=== PATIENT | male | born 1935 | race Caucasian/White ===

== ENCOUNTER 2017-08-20 08:32 | Outpatient (CLI) | payer MEDICARE ==
--- NOTE | 2017-08-20 09:54 | CT ---
CT CHEST WITH IV COTNRAST: HISTORY: Chronic aortic aneurysm without rupture. FINDINGS: Comparison is made with the exam of 12/16/16. The thoracic aorta is tortuous. Vascular calcifications are again seen. The ascending thoracic aort a is stable measuring 5.1 and the descending thoracic aorta is also stable measuring 3.3 cm. No pleu ral or pericardial effusions are identified. No interval flap is seen in the well-opacified thoracic aortic lumen, to suggest dissection. No pneumothorax, focal areas of consolidation, or lung masses are identified. A 4 mm peripheral nodule in the posterior aspect in the left upper lobe is stable. There are degener ative changes in the supine. Upper abdominal tomograms demonstrate cysts I the liver. IMPRESSION: Stable exam with 5.1 cm ascending thoracic aortic aneurysm. POS: SERA
[2017-08-20] MEDS ORDERED: Iopamidol 370 76% 100 ML VIAL ONE (12:40)
== END 2017-08-20 08:33 | disposition home or self-care (01) ==
LOC: CT 08:32
PROVIDERS: ATTEND Internal Medicine Cardiovascular Disease
DX: I71.2 Thoracic aortic aneurysm, without rupture (principal)
CPT/HCPCS: 71260

== ENCOUNTER 2018-08-05 09:44 | Outpatient (CLI) | payer MEDICARE ==
[2018-08-05] MEDS ORDERED: ISOVUE-370 76%-LOCM 1 ML ONE (11:35)
--- NOTE | 2018-08-05 11:40 | CT ---
CT ANGIO CHEST PERFORMED WITH AND WITHOUT INTRAVENOUS CONTRAST ENHANCEMENT WITH 3D RECONSTRUCTIONS: HISTORY: The patient has a history of thoracic aortic aneurysm. This is a followup to prior imaging. COMPARISON: 08/20/2017 FINDINGS: The lungs are clear of any infiltrative process. No pulmonary nodules are identified or signs of ple ural effusions. No significant mediastinal or hilar adenopathy. There are moderate coronary artery calcifications seen. The thoracic aorta is very tortuous. The ascending thoracic aorta is stable in size (a measurement o f 5 cm is obtained on today's study). The descending thoracic aorta measures approximately 3.3 cm, a lso stable. A moderate hiatal hernia is incidentally seen. IMPRESSION: 1. Stable ascending aortic aneurysm, measuring in the 5 cm range. The aorta is very tortuous. 2. Fairly extensive coronary artery calcifications. POS: SERA
== END 2018-08-05 09:45 | disposition home or self-care (01) ==
LOC: BICCT 09:44
PROVIDERS: ATTEND Internal Medicine Cardiovascular Disease
DX: I71.2 Thoracic aortic aneurysm, without rupture (principal); I77.1 Stricture of artery; I25.10 Atherosclerotic heart disease of native coronary artery without angina pectoris
CPT/HCPCS: 71275; 82565

== ENCOUNTER 2019-05-17 11:42 | Outpatient (CLI) | payer MEDICARE ==
[2019-05-17 12:44] LABS: #Eosinphils 0.1 thou/uL (0.0-0.7); #Lymphocytes 0.8 thou/uL (1.20-3.40); #Monocytes 0.4 thou/uL (0.11-0.59); %Basophils 0.1 % (0.0-1.0); %Eosinophils 1.5 % (0.0-10.0); %Lymphocytes 18.9 % (21.0-51.0); %Monocytes 8.5 % (0.0-10.0); Mean Corpuscular Hemoglobin 32.3 pg (27.0-31.0); Mean Corpuscular Volume 97.9 fL (78.0-98.0); Mean Platelet Volume 8.4 fL (7.4-10.4); Platelet Count 110 thou/uL (130-400); RBC Distribution Width 11.8 % (11.5-14.5); Red Blood Cell (RBC) Count 4.33 mill/uL (4.70-6.10); White Blood Cell (WBC) Count 4.2 thou/uL (4.8-10.8)
[2019-05-17 13:21] LABS: Chloride 107 mmol/L (98-107); Potassium 4.1 mmol/L (3.5-5.1); Sodium 140 mmol/L (136-145)
[2019-05-17 13:22] LABS: Calcium 8.7 mg/dL (7.8-10.44); Glucose 93 mg/dL (83-110)
[2019-05-17 13:24] LABS: Anion Gap 11 mmol/L (10-20); Carbon Dioxide 26 mmol/L (23-31)
[2019-05-17 13:26] LABS: Calc. Creatinine Clearance 0 mL/min (70-130); Estimated GFR-MDRD 62
[2019-05-17 13:27] LABS: BUN (Urea Nitrogen) 16 mg/dL (8.4-25.7)
== END 2019-05-17 11:43 | disposition home or self-care (01) ==
LOC: LABBT 11:42
PROVIDERS: ATTEND Specialist
DX: Z01.812 Encounter for preprocedural laboratory examination (principal); Z51.81 Encounter for therapeutic drug level monitoring; K43.9 Ventral hernia without obstruction or gangrene; Z79.01 Long term (current) use of anticoagulants
CPT/HCPCS: 80048; 85025; 85730

== ENCOUNTER 2019-05-19 05:37 | Day surgery (SDC) | payer MEDICARE ==
[2019-05-17 12:03] VITALS: BMI 32.7
[2019-05-19] MEDS ORDERED: Ketorolac Tromethamine 30 MG/ML VIAL ONE (06:34)
[2019-05-19] MEDS ORDERED: Levofloxacin 500 mg/D5W 100 ml Premix Bag ONE (06:34)
[2019-05-19] MEDS ORDERED: Fentanyl 100 MCG/2 ML VIAL ONE ×2 (06:36)
[2019-05-19 06:40] LABS: INR-International Normal Ratio 2.2; PTT 38.1 SEC (22.9-36.1); Prothrombin Time 24.6 SEC (12.0-14.7)
== END 2019-05-19 07:30 | disposition home or self-care (01) ==
LOC: SDC 05:37
PROVIDERS: ATTEND Specialist
DX: K43.9 Ventral hernia without obstruction or gangrene (principal); Z79.01 Long term (current) use of anticoagulants; Z79.899 Other long term (current) drug therapy; Z88.0 Allergy status to penicillin; Z53.8 Procedure and treatment not carried out for other reasons
CPT/HCPCS: 36415; 85610; 85730; 86850; 86900; 86901; J0131; J1885; J1956; J3010

== ENCOUNTER 2019-05-21 07:10 | Day surgery (SDC) | payer MEDICARE ==
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
[2019-05-21] MEDS ORDERED: Ketorolac Tromethamine 30 MG/ML VIAL ONE (07:53)
[2019-05-21] MEDS ORDERED: Levofloxacin 500 mg/D5W 100 ml Premix Bag ONE (07:53)
[2019-05-21 08:12] LABS: INR-International Normal Ratio 1.4; PTT 34.2 SEC (22.9-36.1); Prothrombin Time 17.4 SEC (12.0-14.7)
[2019-05-21] MEDS ORDERED: Bupivacaine HCl 0.5%/Epinephrine 1:200,000/PF 30 ml Vial ONE (09:35)
[2019-05-21] MEDS ORDERED: Fentanyl 100 MCG/2 ML VIAL ONE ×3 (09:48→12:52)
[2019-05-21] MEDS ORDERED: Rocuronium Bromide 10 MG/ML (10ML VIAL) ONE (11:07)
[2019-05-21] MEDS ORDERED: Lidocaine 1% PF 5 ML VIAL ONE (11:07)
[2019-05-21] MEDS ORDERED: PHENYLEPHRINE-NS 100 MCG/ML 10 ML SYRINGE ONE (11:07)
[2019-05-21] MEDS ORDERED: Ondansetron PF 4 MG/2 ML Vial ONE (11:07)
[2019-05-21] MEDS ORDERED: Dexamethasone 20 MG/5 ML VIAL ONE (11:07)
[2019-05-21] MEDS ORDERED: Glycopyrrolate 0.2 MG/ML 5 ML SYRINGE ONE (11:07)
[2019-05-21] MEDS ORDERED: PROPOFOL 200 MG/20 ML VIAL ONE (11:07)
--- NOTE | 2019-05-21 12:37 | OP ---
DATE OF PROCEDURE: 05/21/2019 PREOPERATIVE DIAGNOSIS: Incisional hernia, spigelian type hernia, left lower quadrant just below the anterior superior iliac spine on the left. POSTOPERATIVE DIAGNOSIS: Incisional hernia, spigelian type hernia, left lower quadrant just below the anterior superior iliac spine on the left. PROCEDURE PERFORMED: Robot laparoscopic mesh repair of incisional hernia, left lower abdomen. DESCRIPTION OF PROCEDURE: The patient was taken to the operating room where under general anesthesia, a Santoyo catheter placed at the beginning of the procedure and removed at the end. Abdomen was prepared with ChloraPrep and draped in routine fashion. I tried to identify the hernia defect, but had difficulty. I then referred to his CAT scan, identifying the defect just below the anterior superior iliac spine on the left. There was a questionable defect. Left subxiphoid incision made and 8 mm port placed and right mid periumbilical incision made and 11 mm port placed and the right lower quadrant incision made and an 8 mm port placed under laparoscopic visualization after establishing pneumoperitoneum to 15 mmHg with a Veress needle. I then inspected the area and there was an area just superior to the old left inguinal hernia mesh, which had been done open where there was a recess in the lateral abdomen, probably accounting for the radiological findings. The robot was docked and robot evaluation and repair undertaken. There were a paucity of adhesions here. A very few adhesions were taken down. The peritoneal defect closed with continuous suture of 2-0 Stratafix and then 8 cm diameter round Ventralight mesh secured after reducing pneumoperitoneum to 9 mmHg and secured to the peritoneum with continuous suture of 2-0 Stratafix. Once this was completed and needles removed, good hernia repair appreciated. No other defects noted in the abdominal wall. Pneumoperitoneum reduced. All instruments were removed and all skin incisions were approximated with interrupted subdermal 4-0 Monocryl and Finzel glue applied. Job ID: [id number]
[2019-05-21] MEDS ORDERED: HYDROcodone/Acetaminophen 5/325 mg Tablet ONE ×2 (13:52→16:10)
[2019-05-21] MEDS ORDERED: Ondansetron ODT 4 MG TAB ONE (14:36)
[2019-05-21] MEDS ORDERED: Promethazine HCl 25 MG/ML VIAL ONE (17:55)
== END 2019-05-21 19:40 | disposition home or self-care (01) ==
LOC: SDC 07:10
PROVIDERS: ATTEND Specialist
PROC: 0WUF4JZ Supplement Abdominal Wall with Synthetic Substitute, Percutaneous Endoscopic Approach (ICD-10-PCS; principal; 2019-05-21)
DX: K43.2 Incisional hernia without obstruction or gangrene (principal); N40.0 Benign prostatic hyperplasia without lower urinary tract symptoms; I48.91 Unspecified atrial fibrillation; M19.90 Unspecified osteoarthritis, unspecified site; Z86.73 Personal history of transient ischemic attack (TIA), and cerebral infarction without residual deficits; Z79.01 Long term (current) use of anticoagulants; Z79.899 Other long term (current) drug therapy; Z88.0 Allergy status to penicillin; Z98.890 Other specified postprocedural states
CPT/HCPCS: 49654; 85610; 85730; C1781; 36415; J0131; J0670; J1885; J1956; J2550; J3010; Q0162

== ENCOUNTER 2019-05-23 04:06 | Emergency (ER) | payer MEDICARE ==
[2019-05-23] MEDS ORDERED: Morphine 4 MG/ML VIAL ONE (04:35)
[2019-05-23] MEDS ORDERED: Ondansetron PF 4 MG/2 ML Vial ONE (04:36)
[2019-05-23 04:38] LABS: Bacteria/HPF None Seen HPF (None Seen); Bilirubin Negative (Negative); Blood, Urine Trace (Negative); Clarity Clear (Clear); Glucose, Urine (Dipstick) Normal (Negative); Leukocyte Negative Leu/uL (Negative); Nitrite Negative (Negative); Protein, Urine (Dipstick) Negative (Neg-Trace); RBC/HPF 0-3 HPF (0-3); Squamous Epithelial 0-3 HPF (0-3); Urobilinogen Normal mg/dL (Less than 2); WBC/HPF 0-3 HPF (0-3)
[2019-05-23 04:59] LABS: #Eosinphils 0.1 thou/uL (0.0-0.7); #Lymphocytes 0.4 thou/uL (1.20-3.40); #Monocytes 0.5 thou/uL (0.11-0.59); #Neutrophils 5.5 thou/uL (1.40-6.50); %Eosinophils 0.8 % (0.0-10.0); %Lymphocytes 6.9 % (21.0-51.0); %Monocytes 7.3 % (0.0-10.0); Hemoglobin 13.5 g/dL (14.0-18.0); Mean Corpuscular Hemoglobin 32.9 pg (27.0-31.0); Mean Corpuscular Volume 99.9 fL (78.0-98.0); Mean Platelet Volume 8.8 fL (7.4-10.4); Platelet Count 115 thou/uL (130-400); RBC Distribution Width 11.5 % (11.5-14.5); White Blood Cell (WBC) Count 6.5 thou/uL (4.8-10.8)
[2019-05-23 05:15] LABS: ALT (SGPT) 17 U/L (8-55); AST (SGOT) 24 U/L (5-34); Alkaline Phosphatase 68 U/L (40-110); Anion Gap 13 mmol/L (10-20); BUN (Urea Nitrogen) 18 mg/dL (8.4-25.7); Calc. Creatinine Clearance 0 mL/min (70-130); Calcium 8.8 mg/dL (7.8-10.44); Carbon Dioxide 26 mmol/L (23-31); Chloride 102 mmol/L (98-107); Estimated GFR-MDRD 53; Globulin 2.5 g/dL (2.4-3.5); Glucose 113 mg/dL (83-110); Lipase 7 U/L (8-78); Potassium 4.3 mmol/L (3.5-5.1); Protein, Total 6.5 g/dL (5.8-8.1); Sodium 137 mmol/L (136-145)
--- NOTE | 2019-05-23 07:59 | CT ---
PRELIMINARY REPORT/[facility]/EMERGENCY AFTER HOURS PROCEDURE: PROCEDURE INFORMATION: Exam: CT Head Without Contrast Exam date and time: 05/23/2019 4:40 AM Clinical history: 83 years old, male; Injury or trauma; Initial encounter; Abrasion; Forehead; Patien t HX: Fall; PT reports hernia repair on Friday. Had fall Friday at noon, now reports lower abd pain and new lump to left groin TECHNIQUE: Imaging protocol: Computed tomography of the head without contrast. COMPARISON: No relevant prior studies available. FINDINGS: Brain: There are scattered foci of hypoattenuation within the periventricular and subcortical white m atter compatible with mild chronic microvascular ischemic change. There is mild parenchymal volume loss. There is no evidence of intracranial hemorrhage. Ventricles: Normal. No ventriculomegaly. Bones/joints: Unremarkable. No acute fracture. Sinuses: Visualized sinuses are unremarkable. No fluid levels. Mastoid air cells: Visualized mastoid air cells are well aerated. Soft tissues: Mild forehead soft tissue swelling is noted. IMPRESSION: No acute intracranial hemorrhage. Thank you for allowing us to participate in the care of your patient. Dictated and Authenticated by: Navin Cruz MD 05/23/2019 5:11 AM Central Time ([place] & [place]) FINAL REPORT CT BRAIN WITHOUT CONTRAST: HISTORY: Fall. COMPARISON: None. FINDINGS: Findings and impression are concordant with the preliminary report. IMPRESSION: No acute posttraumatic intracranial sequelae. Transcribed Date/Time: 05/23/2019 8:04 AM
--- NOTE | 2019-05-23 08:09 | CT ---
PRELIMINARY REPORT/[facility]/EMERGENCY AFTER HOURS PROCEDURE: PROCEDURE INFORMATION: Exam: CT Abdomen And Pelvis With Contrast Exam date and time: 05/23/2019 4:45 AM Clinical history: 83 years old, male; Injury or trauma; Initial encounter; Abrasion; Prior surgery; P atient HX: PT reports hernia repair on Friday. Had fall Friday at noon, now reports lower abd pain and new lump to left groin TECHNIQUE: Imaging protocol: Computed tomography of the abdomen and pelvis with intravenous contrast. COMPARISON: No relevant prior studies available. FINDINGS: Lungs: There is subpleural atelectasis of the dependent portions of the lungs. Mediastinum: A small hiatal hernia is present. Liver: There are multiple liver hypodensities that cannot be further characterized on the current examination. Gallbladder and bile ducts: The gallbladder is normal. There is no evidence of biliary ductal dilatio n. Pancreas: Normal. No ductal dilation. Spleen: The spleen is normal. Adrenals: The adrenal glands are normal. Kidneys and ureters: The kidneys appear normal. No hydronephrosis. Stomach and bowel: There is a small benign duodenal diverticulum. There are collapsed loops of bowel within the left lower quadrant with surrounding inflammation possibly sequela from recent surgery. Appendix: No evidence of appendicitis. Intraperitoneal space: No peritoneal hematoma is demonstrated. Vasculature: The vasculature demonstrates diffuse mild atherosclerotic calcification. Lymph nodes: Unremarkable. No enlarged lymph nodes. Bladder: Unremarkable as visualized. Reproductive: There is scrotal edema/moderate scrotal hydroceles. Bones/joints: There are chronic appearing compression fractures at L1 and L4 and/or Schmorl's node infiltration. Soft tissues: There is moderate amount of subcutaneous emphysema within the left abdominal subcutaneo us tissues. Foci of air are noted within the left inguinal region and along the left inguinal chain possibly residual from recent surgery. IMPRESSION: 1. Foci of air are noted within the left inguinal region and along the left inguinal chain and left a bdominal subcutaneous tissues likely residual from recent surgery. Clinical correlation advised. 2. No peritoneal hematoma is demonstrated. 3. Collapsed loops of bowel within the left lower quadrant possibly sequela from prior surgery. No de finite signs of bowel obstruction at this time. Thank you for allowing us to participate in the care of your patient. Dictated and Authenticated by: Navin Cruz MD 05/23/2019 5:20 AM Central Time ([place] & [place]) FINAL REPORT CT ABDOMEN AND PELVIS WITH CONTRAST: HISTORY: Hernia repair. Abdominal pain. COMPARISON: CT abdomen and pelvis April 15, 2019. FINDINGS/IMPRESSION: Findings and impression are concordant with the preliminary report. Transcribed Date/Time: 05/23/2019 8:15 AM
[2019-05-23] MEDS ORDERED: Iopamidol 370 76% 100 ML VIAL ONE (12:00)
== END 2019-05-23 06:41 | disposition home or self-care (01) ==
LOC: ERS 04:06
DX: R33.9 Retention of urine, unspecified (principal); R10.32 Left lower quadrant pain; W18.30XA Fall on same level, unspecified, initial encounter
CPT/HCPCS: 36415; 51702; 70450; 74177; 80053; 81003; 81015; 83605; 83690; 85025; 87040; 96374; 96375; J2270; J2405; Q9967

== ENCOUNTER 2021-03-11 23:44 | Emergency (ER) | payer MEDICARE ==
[2021-03-12 00:17] LABS: #Eosinphils 0.1 thou/uL (0.0-0.7); #Lymphocytes 0.7 thou/uL (1.20-3.40); #Monocytes 0.5 thou/uL (0.11-0.59); #Neutrophils 5.9 thou/uL (1.40-6.50); %Basophils 0.2 % (0.0-1.0); %Lymphocytes 9.1 % (21.0-51.0); %Monocytes 6.3 % (0.0-10.0); %Neutrophils 83.4 % (42.0-75.0); Hemoglobin 11.2 g/dL (14.0-18.0); Mean Corpuscular HGB CONC 33.8 g/dL (32.0-36.0); Mean Corpuscular Volume 97.6 fL (78.0-98.0); Mean Platelet Volume 7.6 fL (7.4-10.4); Platelet Count 246 thou/uL (130-400); RBC Distribution Width 12.1 % (11.5-14.5); Red Blood Cell (RBC) Count 3.41 mill/uL (4.70-6.10); White Blood Cell (WBC) Count 7.1 thou/uL (4.8-10.8)
[2021-03-12 00:30] LABS: Bacteria/HPF 1+ HPF (None Seen); Bilirubin Negative (Negative); Blood, Urine Negative (Negative); Clarity Clear (Clear); Glucose, Urine (Dipstick) Normal (Negative); Ketone, Urine Negative (Negative); Leukocyte 75 Leu/uL (Negative); Nitrite Negative (Negative); Protein, Urine (Dipstick) Negative (Neg-Trace); RBC/HPF 0-3 HPF (0-3); Specific Gravity, Urine 1.012 (1.002-1.036); Squamous Epithelial 0-3 HPF (0-3); Urobilinogen Normal mg/dL (Less than 2)
[2021-03-12 00:36] LABS: ALT (SGPT) 14 U/L (8-55); AST (SGOT) 14 U/L (5-34); Albumin 3.2 g/dL (3.4-4.8); Alkaline Phosphatase 67 U/L (40-110); Anion Gap 11 mmol/L (10-20); BUN (Urea Nitrogen) 13 mg/dL (8.4-25.7); Bilirubin, Total 0.3 mg/dL (0.2-1.2); Calc. Creatinine Clearance 0 mL/min (70-130); Calcium 8.6 mg/dL (7.8-10.44); Carbon Dioxide 26 mmol/L (23-31); Chloride 103 mmol/L (98-107); Globulin 2.6 g/dL (2.4-3.5); Glucose 103 mg/dL (83-110); Lipase 15 U/L (8-78); Potassium 4.2 mmol/L (3.5-5.1); Protein, Total 5.8 g/dL (5.8-8.1); Sodium 136 mmol/L (136-145)
[2021-03-12] MEDS ORDERED: Acetaminophen 325 MG TAB ONE (02:43)
[2021-03-12] MEDS ORDERED: Iopamidol-370 76% 500 ML 1 ML ONE (14:59)
== END 2021-03-12 06:27 | disposition home or self-care (01) ==
LOC: ERS 23:44
DX: R19.00 Intra-abdominal and pelvic swelling, mass and lump, unspecified site (principal); N39.0 Urinary tract infection, site not specified; I48.91 Unspecified atrial fibrillation; I71.4 Abdominal aortic aneurysm, without rupture; N40.0 Benign prostatic hyperplasia without lower urinary tract symptoms; Z85.038 Personal history of other malignant neoplasm of large intestine; Z79.01 Long term (current) use of anticoagulants; Z79.899 Other long term (current) drug therapy
CPT/HCPCS: 36415; 71045; 74177; 80053; 81003; 81015; 83605; 83690; 83880; 85025; 87077; 87086; 87186; 93005; Q9967

== ENCOUNTER 2021-03-29 08:49 | Outpatient (CLI) | payer MEDICARE | END 2021-03-29 08:50 | disposition home or self-care (01) | LOC: PET 08:49 | PROVIDERS: ATTEND Internal Medicine Hematology & Oncology | DX: C18.9 Malignant neoplasm of colon, unspecified (principal) | CPT/HCPCS: 78815; A9552 ==

== ENCOUNTER 2022-03-27 06:47 | Day surgery (SDC) | payer MEDICARE ==
[2022-03-22 12:16] VITALS: BMI 33.2
[2022-03-27] MEDS ORDERED: Lidocaine 1% MPF 2 ML VIAL ONE (08:19)
[2022-03-27] MEDS ORDERED: PROPOFOL 200 MG/20 ML VIAL ONE (08:19)
== END 2022-03-27 10:19 | disposition home or self-care (01) ==
LOC: SDC 06:47
PROVIDERS: ATTEND Internal Medicine Gastroenterology
PROC: 0DJD8ZZ Inspection of Lower Intestinal Tract, Via Natural or Artificial Opening Endoscopic (ICD-10-PCS; principal; 2022-03-27)
DX: Z08 Encounter for follow-up examination after completed treatment for malignant neoplasm (principal); K57.30 Diverticulosis of large intestine without perforation or abscess without bleeding; I48.91 Unspecified atrial fibrillation; M19.90 Unspecified osteoarthritis, unspecified site; N40.0 Benign prostatic hyperplasia without lower urinary tract symptoms; Z85.038 Personal history of other malignant neoplasm of large intestine; Z86.010 Personal history of colon polyps; Z79.01 Long term (current) use of anticoagulants; Z79.899 Other long term (current) drug therapy; Z88.0 Allergy status to penicillin; Z90.49 Acquired absence of other specified parts of digestive tract
CPT/HCPCS: J2704

== ENCOUNTER 2023-03-14 03:39 | Inpatient (IN) | payer MEDICARE ==
[2023-03-14 04:30] LABS: #Eosinphils 0.1 thou/uL (0.0-0.7); #Monocytes 0.5 thou/uL (0.11-0.59); #Neutrophils 4.3 thou/uL (1.40-6.50); %Basophils 0.4 % (0.0-1.0); %Eosinophils 1.1 % (0.0-10.0); %Lymphocytes 10.6 % (21.0-51.0); %Monocytes 8.5 % (0.0-10.0); Hematocrit 39.4 % (42.0-52.0); Hemoglobin 12.7 g/dL (14.0-18.0); Mean Corpuscular HGB CONC 32.2 g/dL (32.0-36.0); Mean Corpuscular Hemoglobin 32.3 pg (27.0-31.0); Mean Corpuscular Volume 100.3 fl (78.0-98.0); Mean Platelet Volume 11.1 fL (7.4-10.4); Platelet Count 121 10x3/uL (130-400); RBC Distribution Width 13.1 % (11.5-14.5); Red Blood Cell (RBC) Count 3.93 mill/uL (4.70-6.10); White Blood Cell (WBC) Count 5.4 10x3/uL (4.8-10.8)
[2023-03-14 04:52] LABS: ALT (SGPT) 12 U/L (8-55); AST (SGOT) 15 U/L (5-34); Albumin 3.8 g/dL (3.4-4.8); Alkaline Phosphatase 70 U/L (40-110); Anion Gap 11 mmol/L (10-20); BUN (Urea Nitrogen) 19 mg/dL (8.4-25.7); Bilirubin, Total 0.8 mg/dL (0.2-1.2); Calc. Creatinine Clearance 0 mL/min (70-130); Calcium 8.6 mg/dL (7.8-10.44); Carbon Dioxide 25 mmol/L (23-31); Chloride 108 mmol/L (98-107); Estimated GFR 59; Globulin 2.3 g/dL (2.4-3.5); Glucose 103 mg/dL (83-110); Lipase 9 U/L (8-78); Potassium 4.1 mmol/L (3.5-5.1); Protein, Total 6.1 g/dL (5.8-8.1); Sodium 140 mmol/L (136-145)
[2023-03-14] MEDS ORDERED: fentaNYL 50 mcg/mL 1 mL Vial ONE (05:17)
[2023-03-14 05:45] LABS: Troponin I 0.012 ng/mL (< 0.028)
[2023-03-14] MEDS ORDERED: Ondansetron PF 4 MG/2 ML Vial ONE (07:47)
[2023-03-14] MEDS ORDERED: Morphine 4 MG/ML VIAL ONE (07:47)
[2023-03-14 07:53] LABS: Bacteria/HPF None Seen HPF (None Seen); Bilirubin Negative (Negative); Blood, Urine Negative (Negative); CAUTI Indications for Culture Pelvic or flank pain; Clarity Clear (Clear); Glucose, Urine (Dipstick) Normal (Negative); Ketone, Urine Negative (Negative); Leukocyte Negative Leu/uL (Negative); Nitrite Negative (Negative); Protein, Urine (Dipstick) Negative (Neg-Trace); Specific Gravity, Urine 1.039 (1.002-1.036); Squamous Epithelial None Seen HPF (0-3); Urobilinogen Normal mg/dL (Less than 2); WBC/HPF 0-3 HPF (0-3)
[2023-03-14 07:55] LABS: Urine Culture Reflex No No
[2023-03-14] MEDS ORDERED: LevoFLOXacin 750 mg/D5W 150 ml Premix Bag ONE (09:48)
[2023-03-14] MEDS ORDERED: Dicyclomine 20 MG TAB ONE (10:12)
[2023-03-14] MEDS ORDERED: Acetaminophen 325 MG TAB PO PRN (10:24)
[2023-03-14] MEDS ORDERED: Metoclopramide HCl 10 MG/2 ML VIAL IVP PRN (10:30)
[2023-03-14] MEDS ORDERED: Morphine 2 MG/ML VIAL SLOW IVP PRN (10:32)
[2023-03-14] MEDS ORDERED: Morphine 4 MG/ML VIAL SLOW IVP PRN (10:32)
[2023-03-14] MEDS ORDERED: Ondansetron PF 4 MG/2 ML Vial IVP PRN (12:47)
[2023-03-14] MEDS ORDERED: Ondansetron ODT 4 MG TAB PO PRN (12:47)
[2023-03-14] MEDS: Sodium Chloride 0.9% 1,000 ML IV SCH ×2 (12:59→22:24)
[2023-03-14] MEDS ORDERED: Iopamidol 370 76% 100 ML VIAL ONE (14:30)
[2023-03-14] MEDS ORDERED: Iopamidol-370 76% 500 ML MDV (1 ML CHARGE) ONE (14:33)
[2023-03-14 14:53] VITALS: BMI 30.9
[2023-03-14] MEDS: Dicyclomine 20 MG TAB PO PRN ×2 (15:52→22:23)
[2023-03-14] MEDS ORDERED: Pantoprazole 40 MG VIAL IVP SCH (21:00)
[2023-03-14] MEDS: Enoxaparin 120 MG/0.8 ML SYRINGE SC SCH (22:24)
[2023-03-15 07:25] LABS: #Eosinphils 0.1 thou/uL (0.0-0.7); #Monocytes 0.5 thou/uL (0.11-0.59); #Neutrophils 3.1 thou/uL (1.40-6.50); %Basophils 0.4 % (0.0-1.0); %Lymphocytes 19.7 % (21.0-51.0); %Monocytes 9.7 % (0.0-10.0); %Neutrophils 66.8 % (42.0-75.0); Hematocrit 39.3 % (42.0-52.0); Hemoglobin 12.7 g/dL (14.0-18.0); Mean Corpuscular HGB CONC 32.3 g/dL (32.0-36.0); Mean Corpuscular Hemoglobin 32.9 pg (27.0-31.0); Mean Corpuscular Volume 101.8 fl (78.0-98.0); Mean Platelet Volume 11.3 fL (7.4-10.4); Platelet Count 111 10x3/uL (130-400); RBC Distribution Width 13.2 % (11.5-14.5); Red Blood Cell (RBC) Count 3.86 mill/uL (4.70-6.10); White Blood Cell (WBC) Count 4.6 10x3/uL (4.8-10.8)
[2023-03-15 07:50] LABS: Anion Gap 9 mmol/L (10-20); BUN (Urea Nitrogen) 14 mg/dL (8.4-25.7); Calc. Creatinine Clearance 74 mL/min (70-130); Calcium 8.4 mg/dL (7.8-10.44); Carbon Dioxide 28 mmol/L (23-31); Chloride 104 mmol/L (98-107); Estimated GFR 70; Glucose 89 mg/dL (83-110); Potassium 4.2 mmol/L (3.5-5.1); Sodium 137 mmol/L (136-145)
[2023-03-15] MEDS: Enoxaparin 120 MG/0.8 ML SYRINGE SC SCH ×2 (08:09→20:46)
[2023-03-15] MEDS: Tamsulosin HCl 0.4 MG CAP PO SCH (08:10)
[2023-03-16 03:16] LABS: Campy jejuni + coli by PCR Negative (Negative); STEC Shiga Toxin 1+2 Negative (Negative); Salmonella spp. by PCR Negative (Negative); Shigella spp + EIEC by PCR Negative (Negative)
[2023-03-16 07:09] LABS: Anion Gap 8 mmol/L (10-20); BUN (Urea Nitrogen) 12 mg/dL (8.4-25.7); Calc. Creatinine Clearance 75 mL/min (70-130); Calcium 8.5 mg/dL (7.8-10.44); Carbon Dioxide 28 mmol/L (23-31); Chloride 106 mmol/L (98-107); Estimated GFR 71; Glucose 84 mg/dL (83-110); Potassium 3.9 mmol/L (3.5-5.1); Sodium 138 mmol/L (136-145)
[2023-03-16 07:23] LABS: #Eosinphils 0.1 thou/uL (0.0-0.7); #Monocytes 0.4 thou/uL (0.11-0.59); #Neutrophils 2.5 thou/uL (1.40-6.50); %Basophils 0.3 % (0.0-1.0); %Eosinophils 3.3 % (0.0-10.0); %Lymphocytes 17.4 % (21.0-51.0); %Monocytes 10.2 % (0.0-10.0); %Neutrophils 68.5 % (42.0-75.0); Hematocrit 36.4 % (42.0-52.0); Mean Corpuscular Hemoglobin 33.1 pg (27.0-31.0); Mean Corpuscular Volume 100.3 fl (78.0-98.0); Mean Platelet Volume 12.2 fL (7.4-10.4); Platelet Count 106 10x3/uL (130-400); RBC Distribution Width 12.8 % (11.5-14.5); Red Blood Cell (RBC) Count 3.63 mill/uL (4.70-6.10); White Blood Cell (WBC) Count 3.6 10x3/uL (4.8-10.8)
[2023-03-16] MEDS: Tamsulosin HCl 0.4 MG CAP PO SCH (07:58)
[2023-03-16] MEDS: Enoxaparin 120 MG/0.8 ML SYRINGE SC SCH (07:58)
[2023-03-16 12:00] VITALS: BP 146/89; TEMP 98.4
== END 2023-03-16 15:03 | disposition home or self-care (01) | DRG 392 ==
LOC: SUATTDRO 03:39 → ERS 03:39 → SURG B 12:07
PROVIDERS: ADMIT Family Medicine; ATTEND Internal Medicine
DX: K52.9 Noninfective gastroenteritis and colitis, unspecified (principal); K56.609 Unspecified intestinal obstruction, unspecified as to partial versus complete obstruction; I48.91 Unspecified atrial fibrillation; Z79.01 Long term (current) use of anticoagulants; N40.0 Benign prostatic hyperplasia without lower urinary tract symptoms; Z88.0 Allergy status to penicillin; Z79.899 Other long term (current) drug therapy; Z85.038 Personal history of other malignant neoplasm of large intestine; Z90.49 Acquired absence of other specified parts of digestive tract; Z96.653 Presence of artificial knee joint, bilateral; K43.9 Ventral hernia without obstruction or gangrene; K44.9 Diaphragmatic hernia without obstruction or gangrene; D69.59 Other secondary thrombocytopenia; R94.31 Abnormal electrocardiogram [ECG] [EKG]; M48.56XD Collapsed vertebra, not elsewhere classified, lumbar region, subsequent encounter for fracture with routine healing; I71.21 Aneurysm of the ascending aorta, without rupture; K57.30 Diverticulosis of large intestine without perforation or abscess without bleeding
CPT/HCPCS: 36415; 71275; 74174; 74177; 80048; 80053; 81001; 83690; 84484; 85025; 87505; 93005; 96365; 96375; C9113; J1650; J1956; J2270; J2272; J2405; J3010; J7050; Q9967